=== PATIENT | female | born 1995 | race Caucasian/White ===

== ENCOUNTER 2018-06-13 20:09 | Emergency (ER) | payer BC ==
[~2018-06-13] VITALS: Ht 167.6 cm; Wt 91.0 kg
[~2018-06-13 20:09] MED LIST: ACET-812 PO; BENZ-16 PO; IBUP-1985 PO; ONDA8TAB6 PO; ROBCFL PO
[2018-06-13] MEDS ORDERED: acetaminophen 325mg tablet PO ONE (21:15)
[2018-06-13] MEDS ORDERED: guaiFENesin/DM 10ml UD oral syrup PO ONE (21:15)
[2018-06-13 23:05] VITALS: BP 138/80
[2018-06-13] MEDS ORDERED: AZIT500T5 PO (23:12)
== END 2018-06-13 23:26 | disposition home or self-care (01) ==
LOC: ER 20:10
DX: R50.9 Fever, unspecified (principal); R05 Cough; R09.81 Nasal congestion; J02.9 Acute pharyngitis, unspecified; R51 Headache; Z88.0 Allergy status to penicillin; Z88.1 Allergy status to other antibiotic agents; Z79.899 Other long term (current) drug therapy
CPT/HCPCS: 87081; 87502; 87503; 87880; 99283

== ENCOUNTER 2021-10-23 09:16 | Day surgery (SDC) | payer BC ==
[~2021-10-23] VITALS: Ht 167.6 cm; Wt 72.3 kg
[2021-10-23 09:45] VITALS: BP 121/81
[2021-10-23 10:45] VITALS: BP 114/68
[2021-10-23 11:00] VITALS: BP 118/72
[2021-10-23 11:15] VITALS: BP 111/77
[2021-10-23 11:30] VITALS: BP 111/70
== END 2021-10-23 11:30 | disposition home or self-care (01) ==
LOC: SSTAY O 09:16
PROVIDERS: ATTEND Nurse Practitioner
DX: E04.1 Nontoxic single thyroid nodule (principal); C73 Malignant neoplasm of thyroid gland; Z88.0 Allergy status to penicillin; Z88.2 Allergy status to sulfonamides; Z88.1 Allergy status to other antibiotic agents; Z88.8 Allergy status to other drugs, medicaments and biological substances; Z82.49 Family history of ischemic heart disease and other diseases of the circulatory system; Z83.3 Family history of diabetes mellitus; Z79.899 Other long term (current) drug therapy; Z98.890 Other specified postprocedural states
CPT/HCPCS: 10005; 10007

== ENCOUNTER → 2024-01-18 | Emergency (ER) | payer BC ==
[~2024-01-18] VITALS: Ht 165.1 cm; Wt 87.2 kg
[2024-01-18 09:05] VITALS: BP 123/80; PULSE 70; RESP 18; TEMP 97.8; O2SAT 99
[2024-01-18 09:34] LABS: BASOPHILS % (AUTO) 0.5 % (0-1); EOSINOPHILS # (AUTO) 0.3 X10'3 (0-0.9); EOSINOPHILS % (AUTO) 3.8 % (0-6); HEMATOCRIT 40.4 % (35.0-45.0); HEMOGLOBIN 13.9 g/dl (12.0-16.0); LYMPHOCYTES # (AUTO) 2.2 X10'3 (1.1-4.8); LYMPHOCYTES % (AUTO) 29.3 % (21-51); MEAN CORPUSCULAR HEMOGLOBIN 29.3 PG (27.0-31.0); MEAN CORPUSCULAR HGB CONC 34.4 g/dL (33.0-36.5); MEAN CORPUSCULAR VOLUME 85.3 FL (78-98); MEAN PLATELET VOLUME 7.3 FL (7.4-10.4); MONOCYTES # (AUTO) 0.5 X10'3 (0-0.9); MONOCYTES % (AUTO) 6.6 % (2-12); NEUTROPHILS # (AUTO) 4.5 X10'3 (1.8-7.7); NEUTROPHILS % (AUTO) 59.8 % (42-75); PLATELET COUNT 301 X10'3 (140-440); RED BLOOD COUNT 4.74 X10'6 (4.20-5.60); RED CELL DISTRIBUTION WIDTH 13.2 % (11.5-14.5); WHITE BLOOD COUNT 7.4 X10'3 (4.5-11.0)
[2024-01-18 11:07] LABS: ALANINE AMINOTRANSFERASE 24 U/L (12-78); ALBUMIN 3.9 G/DL (3.4-5.0); ALKALINE PHOSPHATASE 74 IU/L (46-116); ANION GAP 8 (8-16); ASPARTATE AMINO TRANSFERASE 15 U/L (10-37); BILIRUBIN,TOTAL 0.5 MG/DL (0.1-1.0); BLOOD UREA NITROGEN 10 MG/DL (7-18); BUN/CREATININE RATIO 12.7 (10.0-20.0); CALCIUM 8.6 MG/DL (8.5-10.1); CHLORIDE 103 MMOL/L (99-107); CREATININE 0.79 MG/DL (0.40-0.90); GLUCOSE 99 MG/DL (70-104); POTASSIUM 3.8 MMOL/L (3.5-5.1); SODIUM 141 MMOL/L (135-145); TOTAL CARBON DIOXIDE 30.4 MMOL/L (24-32); eCRCL 96 ML/MIN; eGFR 87 ML/MIN
[2024-01-18 11:09] LABS: AMYLASE 47 U/L (25-115); LIPASE 23 U/L (16-77)
== END | disposition left against medical advice (07) ==
LOC: ER 08:55
DX: R11.2 Nausea with vomiting, unspecified (principal); R19.7 Diarrhea, unspecified; R10.9 Unspecified abdominal pain; Z53.21 Procedure and treatment not carried out due to patient leaving prior to being seen by health care provider
CPT/HCPCS: 36415; 80053; 82150; 83690; 85025